=== PATIENT | male | born 1945 | race Caucasian/White ===

== ENCOUNTER 2017-04-03 22:23 | Emergency (ER) | payer MEDICARE, OTHER ==
[2017-04-03 22:41] VITALS: TEMP 97.8; O2SAT 97
[2017-04-03] MEDS ORDERED: KETOROLAC TROMETHAMINE INJ 30 MG/ML VIAL IV ONE (22:51)
[2017-04-03] MEDS ORDERED: TAMSULOSIN 0.4 MG CAP PO ONE (22:51)
--- NOTE | 2017-04-03 22:55 | ED.PDOC ---
History of Present Illness - General Chief Complaint: Problem Stated Complaint: flank pain Time Seen by Provider: 04/03/17 22:50 Source: patient Exam Limitations: no limitations - History of Present Illness Initial Comments: Vu Sears 71 y/o male stated that he had sudden onset of sharp stabbing right flank pain radiating to rlq about 4 hours ago and becoming more constant and intense not any better decided to come to er.He also stated that he has difficulty with urination but no hematuria,no constipation no nausea or vomiting. Timing/Duration: 4-6 hours Severity: moderate Improving Factors: nothing Worsening Factors: nothing Associated Symptoms: denies symptoms Allergies/Adverse Reactions: Allergies NO KNOWN ALLERGY Allergy (Verified 04/03/17 22:58) Home Medications: Ambulatory Orders Lisinopril 0 mg PO DAILY 04/03/17 Review of Systems - Review of Systems Constitutional: States: no symptoms reported EENTM: States: no symptoms reported Respiratory: States: no symptoms reported Cardiology: States: no symptoms reported Gastrointestinal/Abdominal: States: no symptoms reported Genitourinary: States: see HPI, dysuria, pain - right flank Musculoskeletal: States: no symptoms reported Skin: States: no symptoms reported Neurological: States: no symptoms reported Endocrine: States: no symptoms reported Hematologic/Lymphatic: States: no symptoms reported Past Medical History (General) - Patient Medical History Hx Seizures: No Hx Stroke: No Hx Dementia: No Hx Asthma: No Hx of COPD: No Hx Cardiac Disorders: No Hx Congestive Heart Failure: No Hx Pacemaker: No Hx Hypertension: Yes Hx Thyroid Disease: No Hx Diabetes: No Hx Gastroesophageal Reflux: No Hx Renal Disease: No Hx Cancer: No Hx of HIV: No Hx Hepatitis C: No Hx MRSA: No Hx Other PMH: Yes - bph Surgical History: no surgical history Other Surgeries:: colonoscopy,prostate biopsy,cardiac work up-no acute findings - Vaccination History Hx Tetanus, Diphtheria Vaccination: No Hx Influenza Vaccination: No Hx Pneumococcal Vaccination: No - Social History Hx Tobacco Use: No Hx Alcohol Use: Yes - occasionally Hx Substance Use: No Hx Substance Use Treatment: No Hx Depression: No Feels Threatened In Home Enviroment: No Feels Threatened In a Relationship: No Hx Physical Abuse: No Hx Emotional Abuse: No - Activities of Daily Living Patient Lives Alone: No - Grooming Ability: Independent Eating (Feeding) Ability: Independent Toileting Ability: Independent - Female History Patient is a Female of Child Bearing Age (10 -59 yrs old): No Family Medical History - Family History Father Family History: No Known Hx Family Hypertension: Yes - mom Hx Cardiac Disease: Yes - dad Hx Family Cancer: Yes - prostate-dad Physical Exam - Physical Exam General Appearance: Alert, No apparent distress Eye Exam: bilateral normal Ears, Nose, Throat: hearing grossly normal, normal ENT inspection, normal pharynx Neck: non-tender, full range of motion, supple Respiratory: chest non-tender, lungs clear, normal breath sounds, no respiratory distress Cardiovascular/Chest: normal peripheral pulses, regular rate, rhythm, no edema, no gallop, no murmur Peripheral Pulses: radial,right: 2+, radial,left: 2+ Gastrointestinal/Abdominal: normal bowel sounds, non tender, soft, no organomegaly Rectal Exam: deferred - stated goes to urologist and had prostate exam Back Exam: normal inspection, no CVA tenderness, no vertebral tenderness Extremity: normal range of motion, non-tender, normal inspection, no pedal edema , no calf tenderness Neurologic: no motor/sensory deficits, alert, oriented x 3 Progress - Results/Orders Results/Orders: Vital Signs - 8 hr 04/03/17 22:29 Temperature 97.8 F Pulse Rate [ 71 right arm] Respiratory 18 Rate Blood Pressure 170/90 [Right Arm] O2 Sat by Pulse 97 Oximetry 04/03/17 22:51 IV Care:Saline Lock per Protoc QSHIFT Laboratory Results WBC 8.3 K/mm3 (4.8-10.8) 04/03/17 23:00 RBC 3.89 M/mm3 (4.70-6.10) L 04/03/17 23:00 Hgb 12.8 gm/dL (14.0-18.0) L 04/03/17 23:00 Hct 37.4 % (42.0-52.0) L 04/03/17 23:00 MCV 96.1 fl (80.0-94.0) H 04/03/17 23:00 MCH 32.9 pg (27.0-31.0) H 04/03/17 23:00 MCHC 34.1 g/dL (33.0-37.0) 04/03/17 23:00 RDW 12.9 % (11.5-14.5) 04/03/17 23:00 Plt Count 152 K/mm3 (130-400) 04/03/17 23:00 MPV 8.1 fl (7.40-10.4) 04/03/17 23:00 Absolute Neuts (auto) 6.00 K/uL (1.8-6.8) 04/03/17 23:00 Absolute Lymphs (auto) 1.50 K/uL (1.0-3.4) 04/03/17 23:00 Absolute Monos (auto) 0.50 K/uL (0.2-0.8) 04/03/17 23:00 Absolute Eos (auto) 0.30 K/uL (0.0-0.4) 04/03/17 23:00 Absolute Basos (auto) 0.00 K/uL (0.0-0.1) 04/03/17 23:00 Neutrophils % 71.9 % (42.0-78.0) 04/03/17 23:00 Lymphocytes % 17.6 % (20.0-50.0) L 04/03/17 23:00 Monocytes % 6.5 % (2.0-9.0) 04/03/17 23:00 Eosinophils % 3.7 % (1.0-5.0) 04/03/17 23:00 Basophils % 0.3 % (0.0-2.0) 04/03/17 23:00 Sodium 138 mmol/L (135-145) 04/03/17 23:00 Potassium 4.4 mmol/L (3.6-5.0) 04/03/17 23:00 Chloride 108 mmol/L (101-111) 04/03/17 23:00 Carbon Dioxide 23 mmol/L (21-31) 04/03/17 23:00 Anion Gap 11.4 (12-18) L 04/03/17 23:00 BUN 28 mg/dL (7-18) H 04/03/17 23:00 Creatinine 1.83 mg/dL (0.6-1.3) H 04/03/17 23:00 BUN/Creatinine Ratio 15.3 (10-20) 04/03/17 23:00 Random Glucose 120 mg/dL (70-105) H 04/03/17 23:00 Serum Osmolality 282.3 mOsm/L (275-295) 04/03/17 23:00 Calcium 9.0 mg/dL (8.4-10.2) 04/03/17 23:00 Total Bilirubin 0.4 mg/dL (0.2-1.0) 04/03/17 23:00 AST 24 IU/L (10-42) 04/03/17 23:00 ALT 26 IU/L (10-60) 04/03/17 23:00 Alkaline Phosphatase 62 IU/L (42-121) 04/03/17 23:00 Serum Total Protein 7.5 gm/dL (6.4-8.2) 04/03/17 23:00 Albumin 4.7 g/dl (3.2-5.5) 04/03/17 23:00 Globulin 2.8 gm/dL (2.3-3.5) 04/03/17 23:00 Albumin/Globulin Ratio 1.7 (1.1-1.9) 04/03/17 23:00 Urine Color Yellow (Yellow) 04/03/17 23:15 Urine Appearance Clear (Clear) 04/03/17 23:15 Urine pH 5.0 (4.5-7.8) 04/03/17 23:15 Ur Specific [place] >= 1.030 (1.005-1.030) 04/03/17 23:15 Urine Protein 30 mg/dL 04/03/17 23:15 Urine Glucose (UA) Negative mg/dL (Negative) 04/03/17 23:15 Urine Ketones Negative mg/dL (NEGATIVE) 04/03/17 23:15 Urine Blood Moderate (Negative) H 04/03/17 23:15 Urine Nitrite Negative 04/03/17 23:15 Urine Bilirubin Negative (NEGATIVE) 04/03/17 23:15 Urine Urobilinogen 0.2 mg/dL (0.2-1.0) 04/03/17 23:15 Ur Leukocyte Esterase Negative (Negative) 04/03/17 23:15 Urine RBC 5-10 /hpf H 04/03/17 23:15 Urine WBC 0-1 /hpf 04/03/17 23:15 Ur Epithelial Cells 0 /hpf 04/03/17 23:15 Urine Bacteria Rare 04/03/17 23:15 Urine Mucus Trace 04/03/17 23:15 Urine Sperm 0-1 /hpf 04/03/17 23:15 - EKG/XRAY/CT CT Ordered: Yes - abd/pelvis:mild rt.hyronephrosis,non obstructing renal calculus Departure - Departure Clinical Impression: Acute right flank pain, Ureterolithiasis, Renal insufficiency BPH (benign prostatic hyperplasia) Qualifiers: Prostatic enlargement morphology: unspecified morphology Lower urinary tract symptom presence: presence of symptoms unspecified Qualified Code(s): N40.0 - Enlarged prostate without lower urinary tract symptoms Time of Disposition: 00:16 Disposition: Discharge to Home or Self Care Condition: Good Departure Forms: ED Discharge - Pt. Copy, Patient Portal Self Enrollment Instructions: Kidney Stones -- Adult, Kidney Stones (Alternative Therapy), DI for Kidney Stones Diet: other - Drink extra fluids Referrals: Rohith Saravia MD [Primary Care Provider] - 1-2 Weeks Home Medications: Ambulatory Orders Lisinopril 0 mg PO DAILY 04/03/17 Additional Instructions: KEEP APPOINTMENT WITH DR. MCNAMARA-UROLOGIST IN AM 04/04/2017
[2017-04-03] MEDS: MORPHINE SULFATE INJ 10 MG/ML VIAL IV ONE ×2 (23:05)
[2017-04-03] MEDS ORDERED: MORPHINE SULFATE INJ 10 MG/ML VIAL IV ONE (23:05)
--- NOTE | 2017-04-04 00:03 | CT ---
EXAM DESCRIPTION: Abdoment/Pelvis w/o Contrast CLINICAL HISTORY: 71 years Male pain COMPARISON: None. TECHNIQUE: Contiguous axial images obtained through the abdomen and pelvis without IV contrast. Reformatted images obtained. This exam was performed according to our department optimization program which includes automated exposure control, adjustment of the mA and/or kv according to patient size and/or use of iterative reconstruction technique. FINDINGS: Mild dependent atelectatic changes. Small hiatal hernia. The liver appears unremarkable. The spleen and pancreas appear unremarkable. No adrenal masses. Mild right hydronephrosis and perinephric stranding. No right ureteral calculus is visualized. The findings may be from a recently passed calculus or a nonopaque obstructing lesion. There is a small nonobstructing right renal calculus visualized. The gallbladder is visualized. Mild atherosclerotic calcifications. No aneurysmal dilatation of the aorta. Moderate stool in the ascending and transverse colon. No bowel obstruction. The appendix appears unremarkable. There are changes from sigmoid diverticulosis. No free pelvic fluid. The prostate gland is enlarged. Small fat-containing left inguinal hernia. Small fat-containing umbilical hernia. Degenerative changes in the spine. IMPRESSION: Mild right hydronephrosis and perinephric stranding. No definite ureteral calculus is visualized. The findings are likely from a recently passed calculus. A nonopaque obstructing lesion is not excluded. Clinical correlation is recommended. Small nonobstructing right renal calculus. Changes from sigmoid diverticulosis. The prostate gland is enlarged. Electronically signed by: Jaime Colorado MD 04/04/2017 12:03 AM CDT
[2017-04-04] MEDS ORDERED: HYDROCOD/APAP 10/325 (ER DISP) # 3 tablets PO ONE (00:17)
[2017-04-04 00:39] VITALS: BP 162/84
== END 2017-04-04 00:39 | disposition home or self-care (01) ==
LOC: ER 22:23
DX: N13.2 Hydronephrosis with renal and ureteral calculous obstruction (principal); N40.0 Benign prostatic hyperplasia without lower urinary tract symptoms; I10 Essential (primary) hypertension; Z79.899 Other long term (current) drug therapy
CPT/HCPCS: 36415; 74176; 80053; 81001; 85025; J1885; J2270

== ENCOUNTER → 2017-05-23 | Outpatient (CLI) | payer MEDICARE, OTHER | END | disposition home or self-care (01) | LOC: GMAJ 12:08 | PROVIDERS: ATTEND Family Medicine | DX: Z12.5 Encounter for screening for malignant neoplasm of prostate (principal); E53.9 Vitamin B deficiency, unspecified; R41.82 Altered mental status, unspecified | CPT/HCPCS: 82607; G0103 ==

== ENCOUNTER → 2017-06-20 | Outpatient (CLI) | payer MEDICARE, OTHER | LOC: GMAJ 16:43 | PROVIDERS: ATTEND Family Medicine | DX: Z79.899 Other long term (current) drug therapy (principal); R79.9 Abnormal finding of blood chemistry, unspecified ==

== ENCOUNTER → 2018-09-18 | Outpatient (CLI) | payer MEDICARE, OTHER | LOC: GMAJ 13:22 | PROVIDERS: ATTEND Family Medicine | DX: E03.9 Hypothyroidism, unspecified (principal) ==

== ENCOUNTER → 2018-10-30 | Outpatient (CLI) | payer MEDICARE, OTHER | LOC: GMAJ 11:07 | PROVIDERS: ATTEND Family Medicine | DX: E03.9 Hypothyroidism, unspecified (principal) ==

== ENCOUNTER → 2018-12-11 | Outpatient (CLI) | payer MEDICARE, OTHER | LOC: GMAJ 10:31 | PROVIDERS: ATTEND Family Medicine | DX: E03.9 Hypothyroidism, unspecified (principal) ==

== ENCOUNTER → 2019-09-17 | Outpatient (CLI) | payer MEDICARE, OTHER | LOC: GMAJ 10:31 | PROVIDERS: ATTEND Family Medicine | DX: E03.9 Hypothyroidism, unspecified (principal) ==

== ENCOUNTER → 2020-01-21 | Outpatient (CLI) | payer MEDICARE, OTHER | DX: J32.0 Chronic maxillary sinusitis (principal); J34.2 Deviated nasal septum; J34.89 Other specified disorders of nose and nasal sinuses ==

== ENCOUNTER → 2020-03-12 | Outpatient (CLI) | payer MEDICARE, OTHER | LOC: GMAE 16:20 | PROVIDERS: ATTEND Family Medicine | DX: N40.1 Benign prostatic hyperplasia with lower urinary tract symptoms (principal); E03.9 Hypothyroidism, unspecified; I10 Essential (primary) hypertension ==

== ENCOUNTER → 2020-03-14 | Outpatient (CLI) | payer MEDICARE, OTHER ==
--- NOTE | 2020-03-14 09:06 | MRI ---
EXAM DESCRIPTION: Brain w/wo Contrast CLINICAL HISTORY: 74 years Male, TRIGEMINAL NEURALGIA COMPARISON: CT maxillofacial 01/21/2020 TECHNIQUE: Multisequence, multiplanar images of the brain obtained without and with intravenous contrast. FINDINGS: Brain Parenchyma, Ventricles, Meninges: No restricted diffusion. No acute intracranial hemorrhage. Mild generalized cerebral atrophy. No abnormal signal alteration of the brain parenchyma. No abnormal extra-axial fluid collection. No CP angle mass observed on this study not tailored to evaluate the internal auditory canals. No abnormal enhancement. Vascular Structures: Normal flow voids for the major intracranial arteries and dural venous sinuses. Calvarium, paranasal sinuses, mastoids, and orbits: No abnormal calvarial or skull base marrow signal changes. Moderate inflammatory change in the left maxillary sinus extending into the lateral aspect of the left frontal sinus. Mild mucosal thickening of the right ethmoid and left maxillary sinuses. Remaining paranasal sinuses and mastoids are clear. There is hypertrophy of the right nasal turbinates. Grossly unremarkable orbits. IMPRESSION: 1. No acute intracranial abnormality. Consider MRI IAC study without and with contrast to further evaluate if there is concern for trigeminal neuralgia for involvement. 2. Polysinusitis. Electronically signed by: Rahat López MD 03/14/2020 9:04 AM CDT
== END ==
LOC: MRI 08:37
PROVIDERS: ATTEND Psychiatry & Neurology Neurology
DX: G50.0 Trigeminal neuralgia (principal); J01.90 Acute sinusitis, unspecified

== ENCOUNTER → 2020-08-08 | Outpatient (CLI) | payer MEDICARE, OTHER | LOC: GMAJ 12:58 | PROVIDERS: ATTEND Family Medicine | DX: E03.9 Hypothyroidism, unspecified (principal); E53.8 Deficiency of other specified B group vitamins; Z13.29 Encounter for screening for other suspected endocrine disorder; E78.1 Pure hyperglyceridemia ==

== ENCOUNTER 2020-10-02 05:22 | Day surgery (SDC) | payer MEDICARE, OTHER ==
[2020-10-02] MEDS ORDERED: LACTATED RINGERS 1,000 ML ONE (06:38)
[2020-10-02] MEDS ORDERED: PROPOFOL 200 MG/20 ML VIAL IV ONE (07:00)
[2020-10-02] MEDS ORDERED: LIDOCAINE 1% 10 ML VIAL INJ ONE (07:00)
--- NOTE | 2020-10-02 09:39 | OP ---
DATE OF PROCEDURE: 10/02/20 PREOPERATIVE DIAGNOSIS: 1. Melena. POSTOPERATIVE DIAGNOSIS: 1. Diverticulosis. 2. Colonic polyp, proximal transverse. PROCEDURE: 1. Colonoscopy. SURGEON: Rohith Rosales MD ANESTHESIA: General. PROCEDURE: Digital rectal exam was normal. The colonoscope was inserted and with minimal difficulty, the cecum was intubated. We did have to put him on his back to complete the scope. The cecum appeared normal, as did the terminal ileum. Possible small submucosal lipoma at the ileum, but otherwise it looked normal. Upon withdrawal, the mucosal surfaces appeared normal. In the proximal transverse colon, one towering looking small polyp of just over 2 mm was removed completely. Upon further withdrawal, no other significant polyps or mucosal abnormalities were seen. He did have moderate diverticulosis throughout the sigmoid and descending colon, but no evidence of inflammation or recent bleeding. The patient tolerated the procedure and was taken to Recovery to be discharged. We will followup with the pathology. #[id number] cc: [facility]ith Saravia MD [facility]
[2020-10-02 10:26] VITALS: BP 147/76; TEMP 96.9; O2SAT 98
== END 2020-10-02 10:20 | disposition home or self-care (01) ==
LOC: AMB 05:22
PROVIDERS: ATTEND Surgery
DX: K92.1 Melena (principal); D12.3 Benign neoplasm of transverse colon; K57.30 Diverticulosis of large intestine without perforation or abscess without bleeding; I10 Essential (primary) hypertension; E03.9 Hypothyroidism, unspecified; I65.29 Occlusion and stenosis of unspecified carotid artery; Z87.442 Personal history of urinary calculi; Z79.899 Other long term (current) drug therapy
CPT/HCPCS: 00811; 45380; 88305; J3490; J7120

== ENCOUNTER 2020-10-21 10:59 | Emergency (ER) | payer MEDICARE, OTHER ==
--- NOTE | 2020-10-21 11:05 | ED.PDOC ---
History of Present Illness - General Time Seen by Provider: 10/21/20 11:00 Source: patient, RN notes reviewed, Vital Signs reviewed Exam Limitations: no limitations - History of Present Illness Initial Comments: 74 yo male with hx of HTN states around midnight had substernal "heart burn". felt burning in nature. Does not frequently get heart burn. Also generalized malaise. no fever, no shortness of breath, no cough. some nausea. had colonoscopy 3 weeks ago, was normal. Allergies/Adverse Reactions: Allergies Lisinopril Adverse Reaction (Verified 09/30/20 11:07) Cough Home Medications: Ambulatory Orders Benicar 1 tablet PO DAILY 09/30/20 Hydrochlorothiazide 12.5 mg PO DAILY 09/30/20 Levothyroxine Sodium 125 mcg PO DAILY 09/30/20 Multivitamin 1 tablet PO DAILY 09/30/20 [place]-3 Fatty Acids [Fish Oil] 1,000 mg PO DAILY 09/30/20 Vitamin B12 1 tablet PO DAILY 09/30/20 Vitamin C 1 tablet PO DAILY 09/30/20 Vitamin D3 1 tablet PO DAILY 09/30/20 Vitamin E 1 capsule PO DAILY 09/30/20 Alum & Mag Hydrox-Simethicone [Mylanta] 30 ml PO DAILY PRN #300 ml 10/21/20 Amoxicillin & Pot Clavulanate [Augmentin Tab] 875 mg PO BID #10 tab 10/21/20 Azithromycin 250 mg PO DAILY #6 tab 10/21/20 Pantoprazole Sodium 40 mg PO DAILY #30 tab 10/21/20 Review of Systems - Review of Systems Constitutional: States: malaise. Denies: chills, fever EENTM: Denies: blurred vision, throat pain Respiratory: Denies: cough, short of breath Cardiology: States: chest pain. Denies: palpitations Gastrointestinal/Abdominal: States: abdominal pain, nausea. Denies: constipation, diarrhea, vomiting Genitourinary: Denies: dysuria, frequency, hematuria Musculoskeletal: Denies: back pain, joint swelling Neurological: Denies: headache, numbness, paresthesia Endocrine: Denies: unexplained weight gain, unexplained weight loss Hematologic/Lymphatic: Denies: blood clots, easy bleeding, easy bruising Past Medical History (General) - Patient Medical History Hx Seizures: No Hx Stroke: No Hx Dementia: No Hx Asthma: No Hx of COPD: No Hx Cardiac Disorders: No Hx Congestive Heart Failure: No Hx Pacemaker: No Hx Hypertension: Yes Hx Thyroid Disease: Yes Hx Diabetes: No Hx Gastroesophageal Reflux: No Hx Renal Disease: No Hx Cancer: No Hx of HIV: No Hx Hepatitis C: No Hx MRSA: No - Vaccination History Hx Tetanus, Diphtheria Vaccination: No Hx Influenza Vaccination: No Hx Pneumococcal Vaccination: No - Social History Hx Tobacco Use: No Hx Alcohol Use: Yes - occasionally Hx Substance Use: No Hx Substance Use Treatment: No Hx Depression: No Hx Physical Abuse: No Hx Emotional Abuse: No Family Medical History - Family History Father Hx Family Congestive Heart Failure: Yes - father Hx Family Hypertension: Yes - mom Hx Cardiac Disease: Yes - dad Hx Family Cancer: Yes - prostate-dad Physical Exam - Physical Exam General Appearance: Alert, Comfortable, No apparent distress, Well Developed, Well Groomed, Well Hydrated, Well Nourished Eye Exam: bilateral normal Ears, Nose, Throat: hearing grossly normal, normal ENT inspection, normal pharynx Neck: non-tender, full range of motion, supple, normal inspection Respiratory: chest non-tender, lungs clear, normal breath sounds, no respiratory distress, no accessory muscle use Cardiovascular/Chest: normal peripheral pulses, regular rate, rhythm, no edema, no gallop, no JVD, no murmur Peripheral Pulses: radial,right: 2+, radial,left: 2+ Gastrointestinal/Abdominal: normal bowel sounds, non tender, soft, no organomegaly, no pulsatile mass Rectal Exam: deferred Back Exam: normal inspection, no CVA tenderness, no vertebral tenderness Extremity: normal range of motion, non-tender, normal inspection, no pedal edema, no calf tenderness, normal capillary refill Neurologic: nanotechnician II-XII nml as tested, no motor/sensory deficits, alert, normal mood/affect, oriented x 3 Skin Exam: normal color, warm/dry Progress - Progress Progress: 10/21/20 12:34 partial ddx: CAD, Covid, pneumonia, gastirits, others considered. pain resolved with GI cocktail. Due to generalized malaise will treat for possible underlying pneumonia, as cxr shows possible pneumonia vs atelectasis seen on ct scan. The data reviewed when caring for this patient included: nurse notes, prior records, etc. The history and assessments from nurses notes were reviewed and considered, and the patient's home medication list was also reviewed and considered. My assessment and the results of testing completed here in the ED were discussed with the patient/family. All questions were answered, and they express under standing of my assessment and the plan. They have been instructed to return if their symptoms worsen, and have been asked to follow up with their primary care physician to recheck today's presenting complaint. Strict return precautions given. I have reviewed medication, benefits, alternatives and side effects. Patient decided to proceed with medication. Cira Preciado DO #[id number] 10/21/20 16:52 10/21/20 16:53 - Results/Orders Results/Orders: Ct abd/pelvis: Mild constipation. 3 mm nonobstructing right renal stone. No hydronephrosis. Prostatomegaly. Bibasilar atelectasis versus consolidation. 10/21/20 11:15 EKG STAT 10/21/20 14:40 Discharge Stat Laboratory Results WBC 6.1 K/mm3 (4.8-10.8) 10/21/20 11:15 RBC 3.58 M/mm3 (4.70-6.10) L 10/21/20 11:15 Hgb 12.4 gm/dL (14.0-18.0) L 10/21/20 11:15 Hct 35.6 % (42.0-52.0) L 10/21/20 11:15 MCV 99.5 fl (80.0-94.0) H 10/21/20 11:15 MCH 34.7 pg (27.0-31.0) H 10/21/20 11:15 MCHC 34.8 g/dL (33.0-37.0) 10/21/20 11:15 RDW 12.6 % (11.5-14.5) 10/21/20 11:15 Plt Count 165 K/mm3 (130-400) 10/21/20 11:15 MPV 8.3 fl (7.40-10.4) 10/21/20 11:15 Absolute Neuts (auto) 5.50 K/uL (1.8-6.8) 10/21/20 11:15 Absolute Lymphs (auto) 0.40 K/uL (1.0-3.4) L 10/21/20 11:15 Absolute Monos (auto) 0.20 K/uL (0.2-0.8) 10/21/20 11:15 Absolute Eos (auto) 0.00 K/uL (0.0-0.4) 10/21/20 11:15 Absolute Basos (auto) 0.00 K/uL (0.0-0.1) 10/21/20 11:15 Neutrophils % 90.1 % (42.0-78.0) H 10/21/20 11:15 Lymphocytes % 5.8 % (20.0-50.0) L 10/21/20 11:15 Monocytes % 3.7 % (2.0-9.0) 10/21/20 11:15 Eosinophils % 0.2 % (1.0-5.0) L 10/21/20 11:15 Basophils % 0.2 % (0.0-2.0) 10/21/20 11:15 PT 10.0 SECONDS (9.0-10.9) 10/21/20 11:15 INR 1.01 (0.9-1.15) 10/21/20 11:15 PTT (SP) 22.6 SECONDS (21.8-31.6) 10/21/20 11:15 Sodium 140 mmol/L (135-145) 10/21/20 11:15 Potassium 4.6 mmol/L (3.6-5.0) 10/21/20 11:15 Chloride 105 mmol/L (101-111) 10/21/20 11:15 Carbon Dioxide 23 mmol/L (21-31) 10/21/20 11:15 Anion Gap 16.6 (12-18) 10/21/20 11:15 BUN 44 mg/dL (7-18) H 10/21/20 11:15 Creatinine 2.12 mg/dL (0.6-1.3) H 10/21/20 11:15 BUN/Creatinine Ratio 20.8 (10-20) H 10/21/20 11:15 Random Glucose 136 mg/dL (70-105) H 10/21/20 11:15 Serum Osmolality 292.7 mOsm/L (275-295) 10/21/20 11:15 Calcium 8.7 mg/dL (8.4-10.2) 10/21/20 11:15 Magnesium 2.3 mg/dL (1.8-2.5) 10/21/20 11:15 Total Bilirubin 0.8 mg/dL (0.2-1.0) 10/21/20 11:15 AST 18 IU/L (10-42) 10/21/20 11:15 ALT 22 IU/L (10-60) 10/21/20 11:15 Alkaline Phosphatase 59 IU/L (42-121) 10/21/20 11:15 Troponin I < 0.02 ng/mL (0.01-0.05) 10/21/20 14:10 B-Natriuretic Peptide < 15.0 pg/ml (0-100) 10/21/20 11:15 Serum Total Protein 7.0 gm/dL (6.4-8.2) 10/21/20 11:15 Albumin 4.4 g/dl (3.2-5.5) 10/21/20 11:15 Globulin 2.6 gm/dL (2.3-3.5) 10/21/20 11:15 Albumin/Globulin Ratio 1.7 (1.1-1.9) 10/21/20 11:15 - EKG/XRAY/CT EKG: Sinus Comments: NSR, normal intervals, hr 86, q wave Lead III/avf, no prior to compare XRAY: chest - no acute cardiopulmonary pathology. Departure - Departure Clinical Impression: Gastritis Qualifiers: Gastritis type: unspecified gastritis Chronicity: acute Gastritis bleeding: without bleeding Qualified Code(s): K29.00 - Acute gastritis without bleeding Time of Disposition: 14:40 Disposition: Discharge to Home or Self Care Departure Forms: ED Discharge - Pt. Copy, Patient Portal Self Enrollment Instructions: Acid Reflux and GERD in Adults (DC), Acid Reflux and Gastroesophageal Reflux Disease in Adults Diet: other - avoid alcohol, spicy food, chocolate. GERD diet. Activity: increase activity as tolerated Referrals: Rohith Saravia MD [Primary Care Provider] - 1-5 Days ANA BURROUGHS MD [Consulting Staff] - 1 Week Prescriptions: Amoxicillin & Pot Clavulanate [Augmentin Tab] 875 mg PO BID #10 tab Azithromycin 250 mg PO DAILY #6 tab Alum & Mag Hydrox-Simethicone [Mylanta] 30 ml PO DAILY PRN #300 ml PRN Reason: Heartburn Pantoprazole Sodium 40 mg PO DAILY #30 tab Home Medications: Ambulatory Orders Benicar 1 tablet PO DAILY 09/30/20 Hydrochlorothiazide 12.5 mg PO DAILY 09/30/20 Levothyroxine Sodium 125 mcg PO DAILY 09/30/20 Multivitamin 1 tablet PO DAILY 09/30/20 [place]-3 Fatty Acids [Fish Oil] 1,000 mg PO DAILY 09/30/20 Vitamin B12 1 tablet PO DAILY 09/30/20 Vitamin C 1 tablet PO DAILY 09/30/20 Vitamin D3 1 tablet PO DAILY 09/30/20 Vitamin E 1 capsule PO DAILY 09/30/20 Alum & Mag Hydrox-Simethicone [Mylanta] 30 ml PO DAILY PRN #300 ml 10/21/20 Amoxicillin & Pot Clavulanate [Augmentin Tab] 875 mg PO BID #10 tab 10/21/20 Azithromycin 250 mg PO DAILY #6 tab 10/21/20 Pantoprazole Sodium 40 mg PO DAILY #30 tab 10/21/20
[2020-10-21 11:16] VITALS: BP 137/74
[2020-10-21] MEDS ORDERED: ALUM & MAG HYDROX-SIMETHICONE 30 ML, LIDOCAINE VISCOUS 2% 15 ML PO ONE ×2 (11:28)
[2020-10-21] MEDS ORDERED: SODIUM CHLORIDE 0.9% 1000ML 1,000 ML IVS ONE (11:57)
--- NOTE | 2020-10-21 11:59 | RAD ---
EXAM DESCRIPTION: Chest,1 View CLINICAL HISTORY: cp COMPARISON: 27 December 2016 TECHNIQUE: AP portable chest FINDINGS: The lungs are clear. There is no infiltrate or effusion. The heart is normal size. IMPRESSION: Normal portable chest Electronically signed by: Yoel Dickson MD 10/21/2020 11:58 AM NETWORK PROFESSIONAL
--- NOTE | 2020-10-21 13:55 | CT ---
Study: CT abdomen and pelvis. Indication: abd pain, upper Technique: CT of the abdomen and pelvis obtained without intravenous contrast. This exam was performed according to our departmental dose-optimization program, which includes automated exposure control, adjustment of the mA and/or kV according to patient size and/or use of iterative reconstruction technique. Comparison: April 03, 2017 Findings: Mild bibasilar atelectasis versus consolidation, left greater than right. Mild cardiomegaly. Liver, gallbladder, pancreas, spleen, adrenal glands demonstrate a normal unenhanced CT appearance. Mild nonspecific bilateral perinephric stranding. No hydronephrosis. 3 mm nonobstructing right renal calculus. Prostatomegaly with mass effect on the bladder. Tiny fat-containing left inguinal hernia. Colonic diverticulosis. Mild constipation. Small bowel and appendix unremarkable. Fluid distention of the stomach and distal esophagus. No findings of obstruction. No free fluid. No free air. No pathologically enlarged lymphadenopathy. Atherosclerosis aorta. Degenerative changes of the spine noted. Impression: Mild constipation. 3 mm nonobstructing right renal stone. No hydronephrosis. Prostatomegaly.] Correlation with PSA recommended. Bibasilar atelectasis versus consolidation. Additional findings as above. Electronically signed by: Paul Yo MD 10/21/2020 1:53 PM TITLE CHECKER
[2020-10-21 15:08] VITALS: TEMP 98.4; O2SAT 94
== END 2020-10-21 15:08 | disposition home or self-care (01) ==
LOC: ER 10:59
DX: K29.00 Acute gastritis without bleeding (principal); K59.00 Constipation, unspecified; N20.0 Calculus of kidney; E07.9 Disorder of thyroid, unspecified; I10 Essential (primary) hypertension; Z79.899 Other long term (current) drug therapy; Z88.8 Allergy status to other drugs, medicaments and biological substances; Z20.828 Contact with and (suspected) exposure to other viral communicable diseases
CPT/HCPCS: 36415; 71045; 74176; 80053; 83735; 83880; 84484; 85025; 85610; 85730; 87502; 87635; 93005; J7030

== ENCOUNTER → 2021-01-09 | Outpatient (CLI) | payer MEDICARE, OTHER ==
--- NOTE | 2021-01-10 10:18 | US ---
EXAM DESCRIPTION: Renal: Ultrasound. CLINICAL HISTORY: 75 years Male ACUTE KIDNEY FAILURE COMPARISON: None TECHNIQUE: Transcutaneous scanning: Two-dimensional and Doppler modes. FINDINGS: Right kidney measures 8.4 x 5.5 x 4.6 cm; volume 112.3 ml. Mid-renal cortical thickness 11 mm. . Echogenicity increased greater than the liver. No hydronephrosis No echogenic stones. Minimally lobulated contour of the kidney with no perinephric fluid. Normal vascularity. Proximal ureter not seen. Left kidney measures 10.4 x 5.6 x 5.2 cm; volume 159.0 ml. Mid-renal cortical thickness normal. Echogenicity equal to the liver. No hydronephrosis. No echogenic stones. Minimally lobulated contour of the kidney with no perinephric fluid. Normal vascularity.. Proximal ureter not seen. Urinary bladder was visualized. Prevoid volume 5.1 x 4.6 x 4.2 cm, equals 50.7 mL. Heterogeneous hypoechoic prostate gland impressing on the base of the bladder measuring 6.5 x 4.8 x 4.8 cm with estimated volume 77.9 mL. Ureteral jet in the bladder not seen by color Doppler. Not recorded. Abdominal aorta: Normal caliber from the proximal segment to the distal bifurcation. IMPRESSION: 1. Lobulated capsule of the right kidney with thin cortex and increased echogenicity greater than the liver and decreased size of the kidney. Indicating moderate amount of renal vascular or parenchymal disease. No stones or hydronephrosis. 2. Minimally lobulated capsule of the left kidney with minimal increase in cortical echogenicity equal to the liver. Otherwise unremarkable. 3. Enlarged prostate gland greater than 75 mL. This is 2 times average prostate volume for seventh decade. Impressing on the base of the urinary bladder. Correlate with PSA measurement or PSA measurement change. 4. Abdominal aorta normal caliber. Electronically signed by: Agustin Go MD 01/10/2021 10:16 AM [employer]
== END ==
LOC: US 07:58
DX: N17.0 Acute kidney failure with tubular necrosis (principal); Q63.1 Lobulated, fused and horseshoe kidney; N28.9 Disorder of kidney and ureter, unspecified; N40.0 Benign prostatic hyperplasia without lower urinary tract symptoms